=== PATIENT | male | born 1980 | race Caucasian/White ===

== ENCOUNTER 2016-06-15 21:01 | Emergency (ER) | payer MEDICAID ==
[~2016-06-15] VITALS: Ht 167.6 cm; Wt 159.1 kg
[~2016-06-15 21:01] MED LIST: SYNTHROID PO; VYTORIN PO
[2016-06-15 21:04] VITALS: TEMP 98.8
[2016-06-15] MEDS ORDERED: VENTOLIN0.09 MG IH (21:12)
[2016-06-15] MEDS ORDERED: DULERA1 AR1 IH (21:12)
[2016-06-15] MEDS ORDERED: SYNTHROID0.112 MG/T PO (21:13)
[2016-06-15] MEDS ORDERED: NIZORAL SHAMPO120 M1 TP (21:14)
[2016-06-15 22:55] LABS: BASO # 0.1 (0.0-0.2); BASO % 0.8 % (0.0-2.0); EOS # 0.1 (0.0-0.7); EOS % 0.8 % (0-4.0); GRAN # 9.2 (1.4-6.5); GRAN % 76.7 % (42.2-75.2); HEMATOCRIT 40.9 % (42.0-52.0); HEMOGLOBIN 13.5 g/dl (13.5-18.0); LYMPH # 1.8 (1.2-3.4); LYMPH % 14.6 % (20.0-51.0); MEAN CELL VOLUME 91 fl (80.0-100.0); MEAN CORPUSCULAR HEMOGLOBIN 30 pg (27.0-31.0); MEAN CORPUSCULAR HGB CONC 33 g/dl (33.0-37.0); MEAN PLATELET VOLUME 9.3 fl (7.4-10.4); MONO # 0.7 (0.1-0.6); MONO % 6.1 % (1.7-9.3); PLATELET COUNT 305 K/mm3 (130-400); RED BLOOD COUNT 4.48 M/mm3 (4.20-5.60); REDCELL DISTRIBUTION WIDTH-CV 17.5 % (11.5-14.5); WHITE BLOOD COUNT 12.1 K/mm3 (4.8-10.8)
[2016-06-15 23:09] LABS: C-REACTIVE PROTEIN 4.1 mg/dL (0.0-0.9)
[2016-06-15 23:26] LABS: URIC ACID 7.6 mg/dL (3.5-8.5)
[2016-06-15] MEDS ORDERED: CEPHALEXIN500 M1 PO (23:49)
[2016-06-15] MEDS ORDERED: NORCO 325 MG-51 TAB PO (23:49)
[2016-06-16 00:11] VITALS: BP 129/7; PULSE 99
== END 2016-06-16 00:11 | disposition home or self-care (01) ==
LOC: COL.ER 21:01
PROVIDERS: Nurse Practitioner
DX: L03.115 Cellulitis of right lower limb (principal)

== ENCOUNTER 2020-11-11 01:38 | Observation (INO) | payer MEDICAID ==
[~2020-11-11] VITALS: Ht 172.7 cm; Wt 144.0 kg
[~2020-11-11 01:38] MED LIST changes: +CEPHALEXIN500 M1 PO; +DULERA1 AR1 IH; +NIZORAL SHAMPO120 M1 TP; +NORCO 325 MG-51 TAB PO; +SYNTHROID0.112 MG/T PO; +VENTOLIN0.09 MG IH
[2020-11-11 02:35] LABS: BASO # 0.1 (0.0-0.2); BASO % 0.9 % (0.0-2.0); EOS # 0.1 (0.0-0.7); EOS % 0.5 % (0-4.0); GRAN # 10.1 (1.4-6.5); GRAN % 78.6 % (42.2-75.2); HEMATOCRIT 46.1 % (42.0-52.0); HEMOGLOBIN 15.2 g/dl (13.5-18.0); LYMPH # 1.4 (1.2-3.4); LYMPH % 11.2 % (20.0-51.0); MEAN CELL VOLUME 92 fl (80.0-100.0); MEAN CORPUSCULAR HEMOGLOBIN 31 pg (27.0-31.0); MEAN CORPUSCULAR HGB CONC 33 g/dl (33.0-37.0); MONO # 1.1 (0.1-0.6); MONO % 8.3 % (1.7-9.3); PLATELET COUNT 319 K/mm3 (130-400); RED BLOOD COUNT 4.99 M/mm3 (4.20-5.60); REDCELL DISTRIBUTION WIDTH-CV 16.4 % (11.5-14.5)
[2020-11-11 02:44] LABS: INR 1.3 (0.8-3.0); PROTHROMBIN TIME 14.7 SECONDS (9.7-12.8)
[2020-11-11 02:46] LABS: PARTIAL THROMBOPLASTIN TIME 34.6 SECONDS (26.0-37.0)
[2020-11-11 03:13] LABS: ALBUMIN 3.6 gm/dL (3.5-5.0); BILIRUBIN,TOTAL 0.4 mg/dL (0.0-1.0); CALCIUM 8.7 mg/dL (8.4-10.2); CREATININE, serum 0.88 (0.66-1.25); POTASSIUM 3.7 mmol/L (3.4-5.0); TOTAL PROTEIN 7.7 gm/dL (6.4-8.2)
[2020-11-11 07:52] LABS: COLLECTION METHOD CATHETER
[2020-11-11] MEDS ORDERED: PROAIR HFA0.09 MG/AC IH (07:58)
[2020-11-11 08:10] LABS: MUCOUS Present /lpf; PH 5 (5-8); URINE APPEARANCE Cloudy; URINE BACTERIA Rare /hpf; URINE BILIRUBIN Negative (NEGATIVE); URINE BLOOD Negative (NEGATIVE); URINE COLOR Yellow; URINE GLUCOSE Negative (NEGATIVE); URINE KETONE Negative (NEGATIVE); URINE LEUKOCYTE ESTERASE 2+ (NEGATIVE); URINE NITRATE Negative (NEGATIVE); URINE PROTEIN(semi-quant) Negative (NEGATIVE); URINE RBC 0-2 /hpf; URINE UROBILINOGEN Negative (NEGATIVE); URINE WBC 0-2 /hpf
[2020-11-11 09:30] VITALS: BP 113/74; PULSE 70; TEMP 97.8
[2020-11-11] MEDS ORDERED: MOTRIN 200200 MG/TAB PO (10:06)
--- NOTE | 2020-11-11 10:49 | NUR ---
PT arrived to floor via cart with ER staff. PT transferred to bed with assistance of staff. Mother then brought up via w/c with ER staff but left shortly after to go home and rest. Pt is very scaley on BLE and BUE, pulses present. Pt appears dehydrated. INT to LA/C. Educated on how to order, able to look at menu and read. Denies needs, pain to BLE. Alarms on, pt oriented and will continue to monitor.
[2020-11-11 12:01] VITALS: BP 121/62; PULSE 78; TEMP 98.1
--- NOTE | 2020-11-11 16:14 | NUR ---
Rip/Mould Operator met with patient to discuss discharge planning. Patient has an intellectual disability and lives with his mother/guardian, Brianne (ph#[phone]). Patient sees Dr. Lewis for primary care and reports he uses a standing walker for ambulation. Patient states he sometimes needs help with ADLS and that his mom or sister, Jina helps him. MARK contacted patient's mother, Brianne to review discharge plan. Brianne advised that she obtains medications from [facility] with no difficulties. Brianne advised that patient's sister, Jina lives three minutes from their home and assists her with caring for patient. Brianne states patient also has in home services through [place], but only receives 10 hours per week. Patient has Case Management through [facility]. Brianne advised the plan is for patient to return home upon discharge. Brianne is interested in having patient's in home hours increased. MARK contacted Jane Fields, Washing Machine Striper at [facility] who advised she would follow up with patient's insurance to request additional hours. Jane advised that at one point in time, patient was coming in for Day Services, but has not attended in quite some time. MARK also made a report to Adult Protective Services (intake #[id number]) due to concerns that patient may require more care in the home than what he currently receives. MARK collaborated with Hospitalist who advised patient is medically cleared for discharge. MARK contacted patient's mother, Brianne who is agreeable with patient returning home today. MARK spoke with [facility] who will contact patient's family at time of discharge. Discharge Plan: Home with family
--- NOTE | 2020-11-11 16:55 | NUR ---
Discharge teaching completed at this time. Pt received discharge packet, reviewed with sister at bedside. Sister concerned that no pain regimen was started here but discusse that pt denied pain with us. PT INT dc'd, tip intact. Reviewed packet and answered questions. PT escorted out via w/c with all belongings, family to drive home, criteria met.
== END 2020-11-11 16:20 | disposition home or self-care (01) ==
LOC: COL.ER 01:38 → MEDICAL 07:42
PROVIDERS: Emergency Medicine
DX: I31.3 Pericardial effusion (noninflammatory) (principal); E66.01 Morbid (severe) obesity due to excess calories; Q90.9 Down syndrome, unspecified; Z79.890 Hormone replacement therapy; Z79.899 Other long term (current) drug therapy
CPT/HCPCS: G0378; J1885; J2270; J2405; J7030; Q9967